=== PATIENT | female | born 1985 | race Two or more races ===

== ENCOUNTER → 2017-03-22 | Outpatient (CLI) | payer BC, OTHER ==
[~2017-03-22] MED LIST: No meds per pt.
[2017-03-22 09:50] LABS: BLOOD UREA NITROGEN 7 mg/dL (7-18)
== END | disposition home or self-care (01) ==
LOC: STAR 08:40
PROVIDERS: ATTEND Obstetrics & Gynecology Gynecology
DX: Z30.2 Encounter for sterilization (principal); R82.99 Other abnormal findings in urine
CPT/HCPCS: 36415; 80048; 81001; 84703; 85025; 87086

== ENCOUNTER 2017-03-28 07:09 | Day surgery (SDC) | payer BC, OTHER ==
[2017-03-22 09:11] VITALS: BP 122/77
[~2017-03-28] VITALS: Ht 160 cm; Wt 78.0 kg
[2017-03-28] MEDS ORDERED: LACTATED RINGERS 1,000 ML IV SCH (07:40)
[2017-03-28 07:59] LABS: HCG UR OBC PASS
[2017-03-28] MEDS ORDERED: LIDOCAINE 1%, 2ML SQ PRN (08:00)
[2017-03-28] MEDS ORDERED: EPINEPHRINE 1 MG/ML, 1ML ONE (09:22)
[2017-03-28] MEDS ORDERED: LIDOCAINE/PF 1%, 30ML ONE (09:22)
[2017-03-28] MEDS ORDERED: MIDAZOLAM 1 MG/ML, 2ML ONE (09:32)
[2017-03-28] MEDS ORDERED: FENTANYL PF 100 MCG/2ML ONE ×2 (09:33→10:43)
[2017-03-28] MEDS ORDERED: ACETAMINOPHEN 325 MG TABLET PO PRN (10:00)
[2017-03-28] MEDS ORDERED: MEPERIDINE/PF 25MG/0.5ML IVPush PRN (10:00)
[2017-03-28] MEDS ORDERED: LABETALOL 5MG/ML, 20ML IV PRN (10:00)
[2017-03-28] MEDS ORDERED: METOPROLOL 1 MG/ML, 5ML IV PRN (10:00)
[2017-03-28] MEDS ORDERED: ONDANSETRON 2MG/ML, 2ML IVPush PRN (10:00)
[2017-03-28] MEDS ORDERED: PROMETHAZINE 25 MG/ML, 1ML IV PRN (10:00)
[2017-03-28] MEDS ORDERED: ALBUTEROL SULFATE 2.5 MG/3 ML NPPB PRN (10:00)
[2017-03-28] MEDS ORDERED: OXYcodone 5 MG/5 ML ORAL.SOL UDC PO PRN (10:00)
[2017-03-28] MEDS ORDERED: EPHEDRINE 50 MG/ML, 1ML IVPush PRN (10:00)
[2017-03-28] MEDS ORDERED: HYDROmorphone 1 MG/ML, 1ML IV PRN (10:00)
[2017-03-28] MEDS ORDERED: FENTANYL PF 100 MCG/2ML IV PRN (10:00)
[2017-03-28] MEDS ORDERED: OXYcodone 5 MG/5 ML ORAL.SOL UDC ONE (10:43)
[2017-03-28] MEDS ORDERED: ACETAMINOPHEN 650 MG/20.3 ML UDC ONE (10:43)
[2017-03-28] MEDS ORDERED: GLYCOPYRROLATE 0.2MG/1ML ONE (15:55)
[2017-03-28] MEDS ORDERED: NEOSTIGMINE 1 MG/ML, 10ML ONE (15:55)
[2017-03-28] MEDS ORDERED: DEXAMETHASONE 4 MG/ML, 1ML ONE (15:55)
[2017-03-28] MEDS ORDERED: SUCCINYLCHOLINE 20 MG/ML, 10ML ONE (15:55)
[2017-03-28] MEDS ORDERED: PROPOFOL 10 MG/ML, 20ML ONE (15:55)
[2017-03-28] MEDS ORDERED: KETOROLAC 30 MG/1 ML ONE (15:55)
[2017-03-28] MEDS ORDERED: ROCURONIUM 10 MG/ML ONE (15:55)
[2017-03-28] MEDS ORDERED: ONDANSETRON 2MG/ML, 2ML ONE (15:55)
== END 2017-03-28 13:10 ==
LOC: OUT 07:09
PROVIDERS: ATTEND Obstetrics & Gynecology Gynecology
DX: Z30.2 Encounter for sterilization (principal)
CPT/HCPCS: 58661; 81025; 88302; J0171; J0330; J1100; J1885; J2250; J2405; J2704; J2710; J3010; J3490; J7120